=== PATIENT | male | born 1965 | race Caucasian/White ===

== ENCOUNTER 2021-12-17 10:39 | Emergency (ER) | payer OTHER, SELFPAY ==
--- NOTE | 2021-12-17 10:50 | ED.URI ---
HPI - URI/Sore Throat General Chief Complaint: Upper Respiratory Infection Stated Complaint: sinus pressure,bilateral ear pain Time Seen by Provider: 12/17/21 10:56 Source: patient and RN notes reviewed Mode of arrival: ambulatory Limitations: no limitations History of Present Illness HPI Narrative: 56-year-old male presents concern for sinus pressure, headache that started on Friday. Reports he took a COVID test yesterday that was negative. He denies cough, shortness of breath, fever, body aches, chills, sweats. He denies taking anything [id number] for his symptoms. His has COVID. MD elicited complaint: cough and sore throat Related Data Allergies Allergy/AdvReac Type Severity Reaction Status Date / Time No Known Allergies Allergy Verified 12/17/21 10:52 Review of Systems Review of Systems: CONSTITUTIONAL: Reports malaise. Denies sweats, or fever. EYES: Denies visual changes, redness, or discharge. ENT: Reports rhinorrhea, congestion, sinus pain. Denies otalgia and sore throat. CARDIOVASCULAR: Denies chest pain, palpitations, or edema. RESPIRATORY: Denies cough. Denies dyspnea. GASTROINTESTINAL: Denies abdominal pain, nausea, vomiting, diarrhea SKIN: Denies rash or itching. MUSCULOSKELETAL: Denies myalgia. NEUROLOGIC: Reports headache. All systems reviewed & are unremarkable except as noted in HPI and below PMFSH Comments At time of signature, agree with nursing past medical, surgical, social and family history. There is no relevant family history pertinent to the presenting complaint Exam Narrative: GENERAL: Well-appearing, well-nourished, and in no acute distress. HEAD: Normocephalic EYES: PERRLA, conjunctivae clear ENT: Nares clear, turbinates edematous and erythematous, clear discharge. Mucous membranes moist. TM pearly gold with dull light reflex bilaterally; no tragal tenderness. Oropharynx not erythematous without lesions. Tonsils not enlarged and without exudate, no drooling, no hoarseness, no trismus, uvula midline. NECK: Supple. No lymphadenopathy CHEST: Clear to auscultation, breath sounds equal. No wheezing, rhonchi, rales, or stridor. No respiratory distress, speaks in full sentences. HEART: Regular rate and rhythm. No murmur heard. SKIN: Warm, dry, no rash. NEURO: Alert and oriented x3. PSYCH: Normal mood and affect Course Course Emergency Course: Patient is aware of diagnosis, understands and agrees to treatment plan. Anticipatory guidance given. Patient agrees to follow-up as directed and is aware of reasons to seek care at the emergency department. Portions of this record may have been created with voice recognition software Level of Care: Express Care Visit Vital Signs Vital signs: Reviewed. MDM - URI/Sore Throat MDM Narrative Medical decision making narrative: Differential diagnosis considered: Steele virus, strep pharyngitis, allergic rhinitis, upper respiratory tract infection, sinusitis, rhinosinusitis, nasopharyngitis. viral pharyngitis, otitis media, otitis externa, pneumonia, bronchitis, viral cough syndrome, viral syndrome, and influenza. Exam findings show no acute concerns or changes; patient is non-toxic appearing and is in no distress. Patient is appropriate for outpatient treatment and follow-up. Lab Data Attestation: I reviewed the patient's lab results. Critical Care Time Critical Care Time Critical Care Time: No Discharge Plan Discharge Clinical Impression: Upper respiratory infection Patient Disposition: Home, Self-Care Condition: Stable Instructions: Upper Respiratory Infection (ED) Additional Instructions: Your rapid COVID test is negative, again it may be too early to test positive. Given that your has COVID your symptoms may likely be due to COVID. Because you have had a close contact COVID exposure, despite a negative test, you do need to quarantine. ? Stay home when you are sick, except to get medical care. ? Stay home for
[2021-12-17 10:56] VITALS: BP 146/91; PULSE 101; RESP 15; TEMP 37.4; O2SAT 98
== END 2021-12-17 11:32 | disposition home or self-care (01) ==
PROVIDERS: Emergency Provider Nurse Practitioner
DX: J06.9 Acute upper respiratory infection, unspecified (principal); Z20.822 Contact with and (suspected) exposure to COVID-19
CPT/HCPCS: 87426; 99213; C9803; G0463

== ENCOUNTER 2021-12-20 17:10 | Emergency (ER) | payer OTHER, SELFPAY ==
--- NOTE | 2021-12-20 17:14 | ED.URI ---
HPI - URI/Sore Throat General Chief Complaint: Upper Respiratory Infection Stated Complaint: Sore Throat,Bilateral Ear Irritation,Fatigue Time Seen by Provider: 12/20/21 17:34 Source: patient and RN notes reviewed Mode of arrival: ambulatory Limitations: no limitations History of Present Illness HPI Narrative: 56-year-old male presents with concern for 6 day history of sinus pressure, scratchy throat, painful swallowing, body aches and chills. Reports he was seen on Friday and had a negative COVID test. Reports his has COVID. Reports he has tried Sudafed and NyQuil. Reports his symptoms have improved, however he still continues to have a sore throat that causes painful swallowing. Reports NyQuil makes him hung over. He denies shortness of breath. MD elicited complaint: cough and sore throat Related Data Allergies Allergy/AdvReac Type Severity Reaction Status Date / Time No Known Allergies Allergy Verified 12/20/21 17:29 Review of Systems Review of Systems: CONSTITUTIONAL: Report malaise, chills EYES: Denies visual changes, redness, or discharge. ENT: Report rhinorrhea, congestion, sore throat. Denies sinus pain, otalgia CARDIOVASCULAR: Denies chest pain, palpitations, or edema. RESPIRATORY: Reports cough. Denies dyspnea. GASTROINTESTINAL: Denies abdominal pain, nausea, vomiting, diarrhea SKIN: Denies rash or itching. MUSCULOSKELETAL: Reports myalgia. NEUROLOGIC: Denies headache. All systems reviewed & are unremarkable except as noted in HPI and below PMFSH Comments At time of signature, agree with nursing past medical, surgical, social and family history. There is no relevant family history pertinent to the presenting complaint Exam Narrative: GENERAL: Nontoxic-appearing and in no acute distress. HEAD: Normocephalic EYES: PERRLA, conjunctivae clear ENT: Nares clear, turbinates edematous and erythematous, clear discharge. Mucous membranes moist. TM pearly gold with dull light reflex bilaterally; no tragal tenderness. Oropharynx erythematous without lesions. Tonsils not enlarged and without exudate, no drooling, no hoarseness, no trismus, uvula midline. NECK: Supple. No lymphadenopathy CHEST: Clear to auscultation, breath sounds equal. No wheezing, rhonchi, rales, or stridor. No respiratory distress, speaks in full sentences. HEART: Regular rate and rhythm. No murmur heard. SKIN: Warm, dry, no rash. NEURO: Alert and oriented x3. PSYCH: Normal mood and affect Course Course Emergency Course: Patient is aware of diagnosis, understands and agrees to treatment plan. Anticipatory guidance given. Patient agrees to follow-up as directed and is aware of reasons to seek care at the emergency department. Portions of this record may have been created with voice recognition software Level of Care: Express Care Visit Vital Signs Vital signs: Reviewed. MDM - URI/Sore Throat MDM Narrative Medical decision making narrative: Differential diagnosis considered: Steele virus, strep pharyngitis, allergic rhinitis, upper respiratory tract infection, sinusitis, rhinosinusitis, nasopharyngitis. viral pharyngitis, otitis media, otitis externa, pneumonia, bronchitis, viral cough syndrome, viral syndrome, and influenza. Exam findings show no acute concerns or changes; patient is non-toxic appearing and is in no distress. Patient is appropriate for outpatient treatment and follow-up. Lab Data Attestation: I reviewed the patient's lab results. Critical Care Time Critical Care Time Critical Care Time: No Discharge Plan Discharge Clinical Impression: COVID Patient Disposition: Home, Self-Care Condition: Stable Instructions: How to Recover from COVID-19 at Home (ED) Additional Instructions: Your rapid COVID test is positive. ? Stay home when you are sick, except to get medical care. ? Stay home for 5 days. If you have no symptoms or your symptoms are resolving after 5 days, you can leave your house. Continue to w
[2021-12-20 17:18] VITALS: BP 130/88; PULSE 80; RESP 18; TEMP 37; O2SAT 99
== END 2021-12-20 17:45 | disposition home or self-care (01) ==
PROVIDERS: Emergency Provider Nurse Practitioner
DX: U07.1 COVID-19 (principal)
CPT/HCPCS: 87426; 87804; 99213; C9803; G0463

== ENCOUNTER 2022-02-11 10:53 | Emergency (ER) | payer OTHER, SELFPAY ==
[2022-02-11 11:29] VITALS: BP 140/89; PULSE 81; RESP 18; TEMP 36.3; O2SAT 100
--- NOTE | 2022-02-11 20:25 | ED.GENADULT ---
HPI - General Adult General Chief complaint: Upper Respiratory Infection Stated complaint: Sore Throat,Cough,Congestion Time Seen by Provider: 02/11/22 10:55 History of Present Illness HPI narrative: 56 y/o male. PMHx None reported. Presents to [facility] with acute complaints of nasal congestion and cough, worsening > the past 1 week. No FULLER, dizziness, focal weakness. No fevers, neck pain. No chest pain, palpitations, hemoptysis. Mild and intermittent dyspnea. Denies GI upset, N/V/D. Related Data Allergies Allergy/AdvReac Type Severity Reaction Status Date / Time No Known Allergies Allergy Verified 02/11/22 11:41 Review of Systems Review of Systems: ?All systems reviewed & are unremarkable except as noted in HPI and below ?HENT: Congestion. RESP: Cough. Exam Narrative: GENERAL: Well-appearing, well-nourished, and in no acute distress. HEAD: Normocephalic, atraumatic. EYES: PERRLA, conjunctivae clear. ENT: Mucous membranes moist. Positive PND. Pharyngeal erythema, without swelling or exudative changes, Uvula midline. Palate soft. NECK: Supple. No lymphadenopathy CHEST: Upper airway Rhonchi, cleared w/cough. No respiratory distress. HEART: Regular rate and rhythm. SKIN: Warm, dry, intact NEURO:? Alert and oriented x3. PSYCH: Normal mood and affect Course Course Level of Care: Express Care Visit Vital Signs Vital signs: Vital Signs Temperature 36.3 C L 02/11/22 11:29 Pulse Rate 81 02/11/22 11:29 Respiratory Rate 18 02/11/22 11:29 Blood Pressure 140/89 02/11/22 11:29 Pulse Oximetry 100 02/11/22 11:29 Oxygen Delivery Room Air 02/11/22 11:29 Temperature 36.3 C L 02/11/22 11:29 Pulse Rate 81 02/11/22 11:29 Respiratory Rate 18 02/11/22 11:29 Blood Pressure 140/89 02/11/22 11:29 Pulse Oximetry 100 02/11/22 11:29 Oxygen Delivery Room Air 02/11/22 11:29 Medical Decision Making Differential Diagnosis Differential Diagnosis: Differential Diagnosis: Consideration of the following conditions may be warranted for the presenting problem, they are not final diagnoses: upper respiratory infection, otitis media, sinusitis, RSV viral infection, PNA, bronchitis, pharyngitis, Streptococcal sore throat, COVID-19, Influenza, and other. Vital Signs Vital Signs: Vital Signs Temperature 36.3 C L 02/11/22 11:29 Pulse Rate 81 02/11/22 11:29 Respiratory Rate 18 02/11/22 11:29 Blood Pressure 140/89 02/11/22 11:29 Pulse Oximetry 100 02/11/22 11:29 Oxygen Delivery Room Air 02/11/22 11:29 Temperature 36.3 C L 02/11/22 11:29 Pulse Rate 81 02/11/22 11:29 Respiratory Rate 18 02/11/22 11:29 Blood Pressure 140/89 02/11/22 11:29 Pulse Oximetry 100 02/11/22 11:29 Oxygen Delivery Room Air 02/11/22 11:29 Discharge Plan Discharge Clinical Impression: Sinusitis, Upper respiratory infection Patient Disposition: Home, Self-Care Condition: Stable Instructions: Antibiotic Form, Sinusitis (ED), Upper Respiratory Infection (DC) Prescriptions: New azithromycin 250 mg tablet See Rx Instructions .ROUTE .COMPLEX Qty: 6 0RF Rx Instructions: For 250 mg dose pack: take 500 mg today (day 1), then 250 mg for 4 days (days 2-5) fluticasone propionate [Flonase Allergy Relief] 50 mcg/actuation spray,suspension 2 spray intranasal Q12H Qty: 16 0RF Rx Instructions: administer into each nostril Follow-up/Referrals: PHYSICIAN,[facility] [Primary Care Provider] - 1 Week Time of Disposition: 11:53
== END 2022-02-11 11:58 | disposition home or self-care (01) ==
PROVIDERS: Emergency Provider Nurse Practitioner Adult Health
DX: J01.90 Acute sinusitis, unspecified (principal)
CPT/HCPCS: 99213; G0463

== ENCOUNTER 2023-01-03 15:43 | Emergency (ER) | payer OTHER, SELFPAY ==
--- NOTE | ~2023-01-03 | XR_ITS ---
EXAMINATION: XR chest 2V DATE: 01/03/2023 16:08 INDICATION: Pneumonia presenting with congestion TECHNIQUE: PA and lateral views of the chest were obtained. COMPARISON: None FINDINGS: The lungs are clear with no focal airspace opacities, pulmonary edema, pleural effusion or pneumothor ax. The cardiomediastinal silhouette is normal. Mild thoracic spondylosis. IMPRESSION: 1. No acute cardiopulmonary disease. Reviewed, dictated and finalized at location A.
--- NOTE | 2023-01-03 15:54 | ED.URI ---
HPI - URI/Sore Throat General Chief Complaint: Upper Respiratory Infection Stated Complaint: Headache,Bilateral Ear Irritation Time Seen by Provider: 01/03/23 15:54 Source: patient, RN notes reviewed and old records reviewed Mode of arrival: ambulatory Limitations: no limitations History of Present Illness HPI Narrative: 57-year-old male presents to the [facility] with bilateral ear pain, congestion and ?nag in his chest. Denies chest pain or shortness of breath. Reports history of pneumonia. Patient states he was concerned for pneumonia States last night he used his 's blood pressure cuff and states he had an elevated reading as well as a headache and increased tinnitus. Denies fevers. Has taken naproxen but no other treatment The URI symptoms started on Friday, 3 days ago. Reports calling his primary care provider and was told to come to the [facility] for evaluation of his blood pressure and to check for pneumonia. Related Data Home Medications Medication Instructions Recorded Confirmed No Home Medications 01/03/23 01/03/23 Allergies Allergy/AdvReac Type Severity Reaction Status Date / Time No Known Allergies Allergy Verified 01/03/23 15:44 Review of Systems Review of Systems: All systems reviewed & are unremarkable except as noted in HPI and below Constitutional: Constitutional: Reports no additional constitutional complaints Eyes: Eyes: Reports no additional eye complaints ENT: Reports as per HPI Cardiovascular: Cardiovascular: Reports no additional cardiovascular complaints, Denies chest pain and Denies dyspnea Respiratory: Respiratory: Reports as per HPI, Denies chest congestion, Denies cough and Denies dyspnea Gastrointestinal: Gastrointestinal: Reports no additional gastrointestinal complaints, Denies abdominal pain, Denies nausea and Denies vomiting Musculoskeletal: Musculoskeletal: Reports no additional musculoskeletal complaints Integumentary/Breasts: Skin/Breast: Reports system reviewed and no additional complaints, except as docu Neurologic: Reports system reviewed and no additional complaints, except as documented Psychiatric: Psychiatric: Reports no additional psychiatric complaints Allergic/Immunologic: Allergic/Immunologic: Reports no additional allergic/immunologic complaints PMFSH Past Medical History Medical History (Updated 01/03/23 @ 16:14 by Radha Abdullahi APRN) Abnormal fasting glucose (04/18/22) Glucose 110 on 04/18/2022. BMI 25.0-25.9,adult Chronic pain in left shoulder (~11/2018) Colon cancer screening Cologuard screening on 05/04/2022 was negative. Recheck in 3 years. Constipation Encounter for prostate cancer screening PSA 0.55 on 04/18/2022. Encounter for wellness examination in adult Mixed hyperlipidemia Total cholesterol 191, triglycerides 96, HDL 40, LDL 131 with ratio 4.8 on 04/18/2022. Overweight (BMI 25.0-29.9) Radiculitis of left cervical region Right knee pain Vitamin B12 deficiency (04/18/22) level low at 233 with goal greater than 400 on 04/18/2022 with folic acid 9.9, hemoglobin 15.2. Family History Family History Mother Heart disease Other Depression Anxiety Social History Social History Smoking status: Never smoker Alcohol intake: never Substance use: never Substance use type: does not use Lack of Transportation: No Lack of Food: Never True Current Housing: I Have Housing Concerned About Future Housing: No Difficulty Paying Gas/Electric Bills: No Difficulty Paying for Meds: No Currently Unemployed: No Education: Associate Degree Difficulty w/ Childcare or Family Care: No Comments At the time of my signature, I reviewed and agree with the nursing past medical, surgical, social, and family history. There is no relevant family history pertinent to the patient complaint. Exam Const: General:
[2023-01-03 15:55] VITALS: BP 134/87; PULSE 93; RESP 16; TEMP 36.7; O2SAT 99
== END 2023-01-03 16:15 | disposition home or self-care (01) ==
PROVIDERS: Emergency Provider Nurse Practitioner; PCP Family Medicine
DX: J06.9 Acute upper respiratory infection, unspecified (principal); E78.2 Mixed hyperlipidemia
CPT/HCPCS: 71046; 99213; G0463

== ENCOUNTER 2024-01-11 08:19 | Emergency (ER) | payer OTHER, SELFPAY ==
--- NOTE | ~2024-01-11 | XR_ITS ---
AP and oblique views of the right ribs, and PA chest radiograph Clinical History: Pain Findings: No rib fracture is seen. Osseous alignment is anatomic. Lungs are clear, without focal cons olidation or pleural effusion. Probable calcified right basilar pleural plaque. Cardiomediastinal con tour is within normal limits. Soft tissues are unremarkable. Impression: No rib fracture is seen. Calcified right basilar pleural plaque. Reviewed, dictated and finalized at location . TORY ATTENDANT Impression: No rib fracture is seen. Calcified right basilar pleural plaque.
--- NOTE | 2024-01-11 08:31 | ED.GENADULT ---
HPI - General Adult General Chief complaint: Fall Stated complaint: RT Side Rib Pain Source: patient Mode of arrival: ambulatory Limitations: no limitations History of Present Illness HPI narrative: 58-year-old male patient presents to the [facility] with complaints of right-sided rib pain. Patient states that he was running yesterday while walking his dog and lost his balance, tripped and fell onto the right side. Patient states that the dog continued to run so he was kind of pulled. Patient states that he did scrape his right knee but just an abrasion. Patient states he also did hit his head on the concrete but states he did not lose any consciousness. Patient states biggest complaint today is right-sided rib pain and he is concerned he might have fractured a rib. Patient states he does have medication that he took for the pain last night that he takes for pain shot nerve thinks it might be in locks a can. Related Data Home Medications Medication Instructions Recorded Confirmed cyanocobalamin (vitamin B-12) 1,000 mcg PO DAILY 05/01/23 01/11/24 1,000 mcg tablet Allergies Allergy/AdvReac Type Severity Reaction Status Date / Time No Known Allergies Allergy Verified 01/11/24 08:34 Review of Systems Review of Systems: CONSTITUTIONAL: Denies fever, chills, or sweats. EYES: Denies visual changes, redness, or discharge. ENT: Denies rhinorrhea, congestion, sore throat, or otalgia. CARDIOVASCULAR: Denies chest pain, palpitations, or edema. RESPIRATORY: Denies cough or dyspnea. GASTROINTESTINAL: Denies abdominal pain, nausea, vomiting, or diarrhea. GENITOURINARY: Denies dysuria or hematuria. SKIN: Denies rash or itching. MUSCULOSKELETAL: Denies back pain, joint pain, or myalgia. Positive right-sided rib pain NEUROLOGIC: Denies headache, numbness, or weakness. PSYCHIATRIC: Denies anxiety or depression. [facility] Past Medical History Medical History (Updated 01/11/24 @ 09:41 by STEPHEN Singletary) Abnormal fasting glucose (04/18/22) Glucose 110 on 04/18/2022. Glucose 106 with hemoglobin A1c 5.4 on 04/28/2023. Glucose 100 with hemoglobin A1c 5.7 on 11/12/2023 with GFR 82. BMI 25.0-25.9,adult Chronic pain in left shoulder (~11/2018) Colon cancer screening Cologuard screening on 05/04/2022 was negative. Recheck in 3 years. Constipation COVID (12/20/21) Encounter for prostate cancer screening PSA 0.55 on 04/18/2022. PSA 0.53 on 04/28/2023. Encounter for wellness examination in adult Mixed hyperlipidemia Total cholesterol 191, triglycerides 96, HDL 40, LDL 131 with ratio 4.8 on 04/18/2022. Cholesterol 207, triglycerides 126, HDL 38, LDL 144 with ratio 5.4 on 04/28/2023. Cholesterol 221, triglycerides 114, HDL 40, LDL 158 with ratio 5.5 on 11/12/2023. Overweight (BMI 25.0-29.9) Radiculitis of left cervical region Right knee pain Vitamin B12 deficiency (04/18/22) level low at 233 with goal greater than 400 on 04/18/2022 with folic acid 9.9, hemoglobin 15.2.Level low at 283 on 11/12/2023. Family History Family History Mother Heart disease Other Depression Anxiety Social History Social History Smoking status: Never smoker Alcohol intake: never Substance use: never Substance use type: does not use Lack of Transportation: No Lack of Food: Never True Current Housing: I Have Housing Concerned About Future Housing: No Difficulty Paying Gas/Electric Bills: No Difficulty Paying for Meds: No Currently Unemployed: No Education: Associate Degree Difficulty w/ Childcare or Family Care: No Exam Narrative: GENERAL: Well-appearing, well-nourished, and in no acute distress. HEAD: Normocephalic, atraumatic. EYES: PERRLA and EOMI. ENT: Nares clear, no rhinorrhea or epistaxis. Mucous membranes moist. NECK: Supple. No lymphadenopathy CHEST: Clear to auscultation. No respiratory distress. patient has tenderness noted to the right-sided 4th and 5th rib on palpitation. There is multiple muscle spasms noted under the right scapula. HEART: Regular rate and rhythm. No murmur heard. Normal peripheral pulses. ABDOMEN: Soft, nontender, nondistended, normal active bowel sounds. EXTREMITIES: Normal range of motion. No edema. SKIN: Warm, dry, no rash. NEURO: Alert and oriented x4, GCS 15. Cranial nerves II through XII grossly intact. No focal neurological deficits. Normal muscle strength and tone. Normal deep tendon reflexes. Negative Babinski, normal finger to nose coordination he had normal heel to mittal glide. Speech is clear. Normal gait. Negative Romberg and no pronator drift Course Course Level of Care: Express Care Visit Reevaluation(s) Reevaluation #1: re-evaluated patient notified him that the x-ray is negative for any acute rib fractures. Discussed with him I think this is more likely muscle and muscle spasms causing the pain. Discussed with patient I am going to prescribe him some muscle relaxants to help with the pain and he can also take this with his meloxicam. Encouraged patient to ice the area and may alternate between ice and heat after 72 hours. Discussed with patient to try and do some deep breathing exercises to prevent any pneumonia and follow up with doctor as needed. A copy of the x-ray was provided to the patient today. Date: 01/11/24 Time: 09:44 Vital Signs Vital signs: Vital Signs Temperature 36.3 C L 01/11/24 08:34 Pulse Rate 74 01/11/24 08:34 Respiratory Rate 18 01/11/24 08:34 Blood Pressure 141/91 H 01/11/24 08:34 Pulse Oximetry 99 01/11/24 08:34 Oxygen Delivery Room Air 01/11/24 08:34 Temperature 36.3 C L 01/11/24 08:35 Pulse Rate 74 01/11/24 08:35 Respiratory Rate 18 01/11/24 08:35 Blood Pressure 141/91 H 01/11/24 08:35 Pulse Oximetry 99 01/11/24 08:35 Oxygen Delivery Room Air 01/11/24 08:35 Vital signs reviewed. The patient has been informed that they may have pre-hypertension or Hypertension based on a BP reading in the department. I recommend that the patient call the primary care provider listed on their discharge instructions or a physician of their choice this week to arrange follow up for further evaluation of possible pre-hypertension or Hypertension Medical Decision Making MDM Narrative Medical decision making narrative: Plan of care patient is to x-ray the right side ribs to assess for any acute fractures. I will reassess patient was this has resulted. Differential Diagnosis Differential Diagnosis: Differential diagnosis: STEMI/ACS, AAA, PE, spontaneous pneumothorax, cardiac tamponade, esophageal rupture, pneumonia, GERD, muscle-skeletal pain or trauma, endocarditis, cocaine-related ischemia, pericarditis, URI, bronchitis. Vital Signs Vital Signs: Vital Signs Temperature 36.3 C L 01/11/24 08:34 Pulse Rate 74 01/11/24 08:34 Respiratory Rate 18 01/11/24 08:34 Blood Pressure 141/91 H 01/11/24 08:34 Pulse Oximetry 99 01/11/24 08:34 Oxygen Delivery Room Air 01/11/24 08:34 Temperature 36.3 C L 01/11/24 08:35 Pulse Rate 74 01/11/24 08:35 Respiratory Rate 18 01/11/24 08:35 Blood Pressure 141/91 H 01/11/24 08:35 Pulse Oximetry 99 01/11/24 08:35 Oxygen Delivery Room Air 01/11/24 08:35 Imaging Data Radiologist's impression: [facility] [address] XRay Report Signed Patient: Braden Cruz : 1965 MR#: [id number] Age: 58 Acct:[id number] Loc: [facility] ADM Date: 01/11/24Attending Dr: Ordering Physician: Devi Weiner APRN Date of Service: 01/11/24 Procedure(s): XR ribs RT w PA CXR Accession Number(s): [id number] cc: Mike Uribe MD; Devi Weiner APRN~ AP and oblique views of the right ribs, and PA chest radiograph Clinical History: Pain Findings: No rib fracture is seen. Osseous alignment is anatomic. Lungs are clear, without focal consolidation or pleural effusion. Probable calcified right basilar pleural plaque. Cardiomediastinal contour is within normal limits. Soft tissues are unremarkable. Impression: No rib fracture is seen. Calcified right basilar pleural plaque. Reviewed, dictated and finalized at location M. GER COMMUNICATION Dictated By: Patel Piper MD 01/11/24 0934 Signed By: <Electronically signed by Patel Piper MD in OV> Critical Care Time Critical Care Time Critical Care Time: No Discharge Plan Discharge Clinical Impression: Contusion of rib on right side, Muscle spasm Patient Disposition: Home, Self-Care Condition: Stable Instructions: Antibiotic Form, Chest Contusion (ED) Additional Instructions: Ice and heat to the area for 20-30 minutes Gentle stretching exercises Gentle massage Caution with lifting, bending, stooping, twisting Avoid pushing, pulling take muscle relaxants as directed--caution drowsiness and no driving or alcohol Anti-inflammatory medicine as directed--take with food He may take the muscle relaxant and anti-inflammatory at the same time Follow-up with your PCP if not improving in 5-7 days Prescriptions: New cyclobenzaprine 10 mg tablet 10 mg PO TID PRN (Reason: muscle spasm) 7 Days Qty: 21 0RF No Action atorvastatin 10 mg tablet 10 mg PO QHS Qty: 30 11RF meloxicam 15 mg tablet 15 mg PO DAILY PRN (Reason: pain) Qty: 30 11RF cyanocobalamin (vitamin B-12) 1,000 mcg tablet 1,000 mcg PO DAILY Follow-up/Referrals: Mike Uribe MD [Primary Care Provider] - Time of Disposition: 09:42
[2024-01-11 08:34] VITALS: BP 141/91; PULSE 74; RESP 18; TEMP 36.3; O2SAT 99
[2024-01-11 08:35] VITALS: BP 141/91; PULSE 74; RESP 18; TEMP 36.3; O2SAT 99
== END 2024-01-11 09:47 | disposition home or self-care (01) ==
PROVIDERS: Emergency Provider Nurse Practitioner Family; PCP Family Medicine
DX: S20.211A Contusion of right front wall of thorax, initial encounter (principal); W01.0XXA Fall on same level from slipping, tripping and stumbling without subsequent striking against object, initial encounter; Y93.02 Activity, running; M62.830 Muscle spasm of back; E78.2 Mixed hyperlipidemia; E53.8 Deficiency of other specified B group vitamins; Z86.16 Personal history of COVID-19
CPT/HCPCS: 71101; 99213; G0463

== ENCOUNTER 2024-08-27 18:03 | Emergency (ER) | payer OTHER, SELFPAY ==
--- NOTE | ~2024-08-27 | XR_ITS ---
HISTORY: fall today/wedding ring in 1 image COMPARISON: None TECHNIQUE: 3 views of the left shoulder were performed FINDINGS: No acute fracture. The glenohumeral and acromioclavicular joint space is maintained The visualized portion of the adjacent left lung is clear. The humeral head is well seated within the glenoid fossa. IMPRESSION: No acute fracture or anterior dislocation. Reviewed, dictated and finalized at location A.
--- NOTE | ~2024-08-27 | XR_ITS ---
HISTORY: fall today COMPARISON: None TECHNIQUE: 2 views of the left great toe were performed FINDINGS: No acute or subacute fracture. Joint spaces are preserved and alignment is maintained. Soft tissues are unremarkable without radiopaque foreign body or significant calcification. Age-appropriate mineralization. IMPRESSION: No acute fracture or dislocation. Reviewed, dictated and finalized at location A.
[2024-08-27 18:18] VITALS: BP 130/77; PULSE 57; RESP 18; TEMP 36.7; O2SAT 99
--- NOTE | 2024-08-27 19:12 | ED.FALL ---
HPI - Fall General Chief Complaint: Fall Stated Complaint: LT Shoulder Pain / Pain In Toe LT Foot / Fall Time Seen by Provider: 08/27/24 18:50 Source: patient and RN notes reviewed Mode of arrival: ambulatory Limitations: no limitations History of Present Illness HPI Narrative: Patient presents today with complaints of left great toe pain and left shoulder pain. He was caring a 50 lb printer in a parking lot today when it started draining. He went to run to get inside when his toe struck a curb and he fell onto the printer injuring his shoulder. Injury occurred approximately 3-4 hours prior to arrival. Denies head injury or loss of consciousness. Currently rates his toe pain 7/10. No [id number] treatment prior to arrival. Denies numbness or tingling in the left arm or left foot. Related Data Home Medications ?Medication ?Instructions ?Recorded ?Confirmed ?Last Taken ?Type cyanocobalamin (vitamin B-12) 1,000 mcg PO DAILY 05/01/23 08/27/24 Unknown History 1,000 mcg tablet magnesium oxide 250 mg PO BID 06/23/24 08/27/24 Unknown History Allergies Allergy/AdvReac Type Severity Reaction Status Date / Time No Known Allergies Allergy Verified 08/27/24 18:07 Review of Systems Review of Systems: CONSTITUTIONAL: Denies body aches, fever, chills, or sweats. EYES: Denies visual changes, redness, or discharge. ENT: Denies rhinorrhea, congestion, sore throat, or otalgia. CARDIOVASCULAR: Denies chest pain, palpitations, or edema. RESPIRATORY: Denies cough or dyspnea. GASTROINTESTINAL: Denies abdominal pain, nausea, vomiting, or diarrhea. GENITOURINARY: Denies dysuria or hematuria. SKIN: Denies rash, itching, or wounds. MUSCULOSKELETAL: + left great toe pain, left shoulder pain NEUROLOGIC: Denies headache, numbness, tingling, or weakness. PSYCH: Denies depression or anxiety. [facility] Past Medical History Medical History Right knee pain Radiculitis of left cervical region Vitamin B12 deficiency (04/18/22) level low at 233 with goal greater than 400 on 04/18/2022 with folic acid 9.9, hemoglobin 15.2.Level low at 283 on 11/12/2023. Level normal at 820 on 06/19/2024. Abnormal fasting glucose (04/18/22) Glucose 110 on 04/18/2022. Glucose 106 with hemoglobin A1c 5.4 on 04/28/2023. Glucose 100 with hemoglobin A1c 5.7 on 11/12/2023 with GFR 82. Fasting glucose 108 with hemoglobin A1c 5.6 and GFR 83 on 06/19/2024. Constipation Colon cancer screening Cologuard screening on 05/04/2022 was negative. Recheck in 3 years. Chronic pain in left shoulder (~11/2018) Mixed hyperlipidemia Total cholesterol 191, triglycerides 96, HDL 40, LDL 131 with ratio 4.8 on 04/18/2022. Cholesterol 207, triglycerides 126, HDL 38, LDL 144 with ratio 5.4 on 04/28/2023. Cholesterol 221, triglycerides 114, HDL 40, LDL 158 with ratio 5.5 on 11/12/2023.Cholesterol 150, triglycerides 75, HDL 32, LDL 102 with ratio 4.7 on 06/19/2024. BMI 25.0-25.9,adult Overweight (BMI 25.0-29.9) Encounter for prostate cancer screening PSA 0.55 on 04/18/2022. PSA 0.53 on 04/28/2023. PSA 0.51 on 06/19/2024. Encounter for wellness examination in adult COVID (12/20/21) Family History Family History Mother Heart disease Other Depression Anxiety Social History Social History Smoking status: Never smoker Alcohol intake: never Substance use: never Substance use type: does not use Lack of Transportation: No Lack of Food: Never True Current Housing: I Have Housing Concerned About Future Housing: No Difficulty Paying Gas/Electric Bills: No Difficulty Paying for Meds: No Currently Unemployed: No Education: Associate Degree Difficulty w/ Childcare or Family Care: No Comments At time of signature, I have reviewed and agree with nursing past medical, surgical, social and family history unless otherwise noted. Please see nursing chart for further information. There is no relevant family history pertinent to the presenting complaint Exam Narrative: GENERAL: Well-appearing, well-nourished, and in no acute distress. HEAD: Normocephalic, atraumatic. EYES: EOMI. No redness or drainage. Conjunctivae normal. ENT: Mucous membranes pink and moist. NECK: Normal AROM. CHEST: No respiratory distress. EXTREMITIES: Left great toe: Tenderness to the interphalangeal joint with some mild edema to the toe. Toenail is unaffected. No tenderness to the MTP. Distal sensation intact. Capillary refill. Pedal pulse normal. Range of motion decreased due to pain. Left shoulder: Bony tenderness anteriorly and laterally without deformity, edema, ecchymosis, or erythema noted. Painful passive range of motion starting at 90? anteriorly and lateral. Distal sensation intact. Capillary refill normal. Radial pulse normal. No tenderness to the clavicle, scapula or trapezius. SKIN: Warm, dry, no rash. Capillary refill normal. Normal skin turgor. NEURO: No focal deficits. Alert and oriented x3. Gait steady. PSYCH: Normal affect. No signs of depression or anxiety. Course Course Level of Care: Express Care Visit Vital Signs Vital signs: Vital Signs Temperature 98.0 F 08/27/24 18:18 Pulse Rate 57 L 08/27/24 18:18 Respiratory Rate 18 08/27/24 18:18 Blood Pressure 130/77 08/27/24 18:18 Pulse Oximetry 99 08/27/24 18:18 Oxygen Delivery Room Air 08/27/24 18:18 Temperature 98.0 F 08/27/24 18:18 Pulse Rate 57 L 08/27/24 18:18 Respiratory Rate 18 08/27/24 18:18 Blood Pressure 130/77 08/27/24 18:18 Pulse Oximetry 99 08/27/24 18:18 Oxygen Delivery Room Air 08/27/24 18:18 Reviewed MDM - Fall MDM Narrative Medical decision making narrative: X-rays are negative for fracture. Postop shoe placed on left foot for comfort with ambulation. Recommend RICE for the toe. Recommend ice and anti-inflammatories for the shoulder. Also recommend follow-up with PCP or orthopedics in 7-10 days if symptoms are not improving either location. Patient agrees with plan. Vital signs stable. Anticipatory guidance given. Differential Diagnosis Differential diagnosis: Likely other (Toe fracture, contusion, shoulder strain, humerus fracture, shoulder separation, rotator cuff tear) Imaging Data Radiologist's impression: ITS Impressions Toe X-Ray 08/27/24 19:04 IMPRESSION: No acute fracture or dislocation. Shoulder X-Ray 08/27/24 19:07 IMPRESSION: No acute fracture or anterior dislocation. Critical Care Time Critical Care Time Critical Care Time: No Discharge Plan Discharge Clinical Impression: Contusion of left great toe without damage to nail, Left shoulder strain, Fall Patient Disposition: Home Condition: Stable Instructions: Contusion in Adults (ED) Additional Instructions: Your toe and shoulder x-rays are negative for fracture. Elevate and ice both. Take Tylenol or ibuprofen for pain. Follow-up with your PCP or orthopedics in 7-10 days if symptoms are not improving. Your blood pressure was elevated above 120/80 today at Urgent Care. This puts you above the threshold for follow up. Please schedule a followup visit with your personal physician as soon as possible, for further evaluation and treatment. Even blood pressure exceeding 120/80 may indicate pre-hypertension. Patient Language: Spanish Prescriptions: No Action cyclobenzaprine 10 mg tablet 10 mg PO TID PRN (Reason: muscle spasm) 7 Days Qty: 21 0RF atorvastatin 10 mg tablet 10 mg PO QHS Qty: 30 11RF cyanocobalamin (vitamin B-12) 1,000 mcg tablet 1,000 mcg PO DAILY magnesium oxide 250 mg magnesium tablet 250 mg PO BID Follow-up/Referrals: Mike Uribe MD [Primary Care Provider] - Time of Disposition: 19:15
== END 2024-08-27 19:20 | disposition home or self-care (01) ==
PROVIDERS: Emergency Provider Nurse Practitioner; PCP Family Medicine
DX: S90.112A Contusion of left great toe without damage to nail, initial encounter (principal); S46.912A Strain of unspecified muscle, fascia and tendon at shoulder and upper arm level, left arm, initial encounter; E78.2 Mixed hyperlipidemia; W18.09XA Striking against other object with subsequent fall, initial encounter
CPT/HCPCS: 73030; 73660; 99214; G0463

== ENCOUNTER 2025-02-23 07:30 | Outpatient (CLI) | payer OTHER, SELFPAY ==
--- NOTE | 2025-02-23 07:40 | ECHO_ITS ---
Patient Info Name: Braden Cruz Age: 60 years : 1965 Gender: Male Ht: 73 in Wt: 185 lbs BSA: 2.08 m2 HR: 57 bpm BP: 150 / 91 mmHg Heart Rhythm: Sinus Rhythm Technical Quality: Good Exam Date: 02/23/2025 7:48 AM Patient Status: O Admit Date: 02/23/2025 Exam Type: CA echo doppler color flow Complete two-dimensional, color flow and Doppler transthoracic echocardiogram is performed. Auto Inspector: Adia Story Attending Provider: Mike Uribe Summary 1. Complete two-dimensional, color flow and Doppler transthoracic echocardiogram is performed. 2. Left ventricular chamber dimension is normal. 3. Left ventricular systolic function is normal, estimated at 60-65. 4. The left ventricular diastolic function is abnormal. 5. E/e' 11 is mildly elevated. 6. Left atrial chamber dimension is mildly enlarged. 7. There is mild aortic valve regurgitation. 8. 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 9. There is mild to moderate eccentric mitral valve regurgitation. 10. There is trace tricuspid valve regurgitation. 11. No pulmonary hypertension, estimated pulmonary arterial systolic pressure is 27 mmHg. Left Ventricle E/e' 11 is mildly elevated. Left ventricular chamber dimension is normal. Left ventricular systolic function is normal, estimated at 60-65. The left ventricular diastolic function is abnormal. Right Ventricle Right ventricular chamber dimension is normal. Right ventricular systolic function is normal and with normal TAPSE 2.2 cm. Left Atria Left atrial chamber dimension is mildly enlarged. Right Atria Right atrial chamber dimension is normal. Aortic Valve The aortic valve is trileaflet. There is no aortic valve stenosis. There is mild aortic valve regurgitation. Pulmonic Valve There is no pulmonic regurgitation. Mitral Valve The mitral valve has moderate to severe posterior prolapse. There is no mitral valve stenosis. There is mild to moderate eccentric mitral valve regurgitation. Tricuspid Valve There is trace tricuspid valve regurgitation. No pulmonary hypertension, estimated pulmonary arterial systolic pressure is 27 mmHg. Pericardium/Pleural There is no pericardial effusion. Inferior Vena Cava Normal inferior vena cava with >50% collapse upon inspiration consistent with normal right atrial pressure, 5 mmHg. Aorta The aortic root size at the sinus of Valsalva is normal. Left Ventricular Outflow Tract Name Value Normal LVOT 2D LVOT Diameter 2.0 cm LVOT Doppler LVOT Peak Velocity 129 cm/s LVOT Peak Gradient 7 mmHg LVOT Mean Gradient 3 mmHg LVOT VTI 23 cm LVOT VTI/AV VTI Ratio 0.8 LVOT Stroke Volume 77 ml LVOT CO 4.0 l/min LVOT CI 1.9 l/min/m2 Pulmonic Valve Name Value Normal RVOT Doppler RVOT Peak Velocity 92 cm/s RVOT Peak Gradient 3 mmHg PV Doppler PV Peak Velocity 98 cm/s PV Peak Gradient 4 mmHg Mitral Valve Name Value Normal MV Diastolic Function MV E Peak Velocity 114 cm/s MV A Peak Velocity 81 cm/s MV E/A 1.4 MV Decel Time (PW) 194 ms MV Annular TDI MV E/e' (Septal) 13.6 MV E/e' (Lateral) 10.5 MV E/e' (Average) 12.0 Tricuspid Valve Name Value Normal TV Regurgitation Doppler TR Peak Velocity 235 cm/s TR Peak Gradient 22 mmHg Estimated PAP/RSVP RA Pressure 5 mmHg <=5 PA Systolic Pressure 27 mmHg <36 RV Systolic Pressure 27 mmHg <36 TV Annular TDI TV Lateral Joie s' Velocity 17.3 cm/s >=9.5 Aorta Name Value Normal Ascending Aorta Ao Root Diameter (MM) 3.2 cm Ao Root Diam Index (MM) 1.5 cm/m2 Aortic Valve Name Value Normal AV Doppler AV Peak Velocity 159 cm/s AV Peak Gradient 10 mmHg AV Mean Gradient 4 mmHg AV VTI 29 cm AV Area (Cont Eq VTI) 2.7 cm2 >=3.0 AV Area (Cont Eq Juice) 2.7 cm2 AV DI (Juice) 0.81 AV Regurgitation 2D LVOT Area 3.3 cm2 Ventricles Name Value Normal LV Dimensions 2D/MM IVS Diastolic Thickness (2D) 0.9 cm 0.6-1.0 LVID Diastole (2D) 5.8 cm 4.2-5.8 LVIW Diastolic Thickness (2D) 0.8 cm 0.6-1.0 LVID Systole (2D) 3.4 cm 2.5-4.0 LVOT Diameter 2.0 cm LV Mass (2D Cubed) 184.31 g 88.00-224.00 LV Mass Index (2D Cubed) 88 g/m2 49-115 Relative Wall Thickness (2D) 0.28 <=0.42 LV Fractional Shortening/Ejection Fraction 2D/MM LV Fractional Shortening (2D) 41 % 25-43 LV EF (2D Teichholz) 71 % LV Diastolic Volume (4C MOD) 99 ml LV EF (4C MOD) 72 % LV Diastolic Volume (2C MOD) 86 ml LV EF (2C MOD) 67 % LV Diastolic Volume (BP MOD) 95 ml 62-150 LV Diastolic Volume Index (BP MOD) 46 ml/m2 34-74 LV Systolic Volume (BP MOD) 29 ml 21-61 LV Systolic Volume Index (BP MOD) 14 ml/m2 11-31 LV EF (BP MOD) 70 % 52-72 LV Diastolic Length (4C) 7.7 cm LV Systolic Length (4C) 6.3 cm LV Stroke Volume (4C MOD) 71 ml Atria Name Value Normal LA Dimensions LA Dimension (MM) 5.0 cm 3.0-4.0 LA Volume (4C A-L) 72 ml LA Volume (BP A-L) 74 ml RA Dimensions RA Area (4C) 15.4 cm2 <=18.0 Report Signatures
== END 2025-02-23 07:31 | disposition home or self-care (01) ==
PROVIDERS: PCP Family Medicine; Visit Provider Family Medicine
DX: R93.1 Abnormal findings on diagnostic imaging of heart and coronary circulation (principal); R01.1 Cardiac murmur, unspecified
CPT/HCPCS: 93306